=== PATIENT | female | born 1960 | race Caucasian/White ===

== ENCOUNTER 2021-03-13 09:05 | Emergency (ER) | payer OTHER ==
[~2021-03-13] VITALS: Ht 154.9 cm; Wt 111.1 kg
[2021-03-13 09:38] VITALS: BP 151/70
== END 2021-03-13 12:34 | disposition home or self-care (01) ==
LOC: ER 09:05
PROVIDERS: Emergency Medicine
DX: U07.1 COVID-19 (principal); J02.9 Acute pharyngitis, unspecified